=== PATIENT | female | born 1995 ===

== ENCOUNTER 2022-05-20 22:51 | Emergency (ER) | payer SELFPAY ==
[2022-05-21 08:32] LABS: Hematocrit 30.5 % (30.3-42.9); Mean Corpuscular HGB Conc 33 % (30-34); Mean Corpuscular Volume 73 fl (79-97); Platelet Count 241 K/mm3 (140-440); Red Blood Count 4.18 M/mm3 (3.65-5.03); Red Cell Distribution Width 18.3 % (13.2-15.2)
[2022-05-21 08:54] LABS: Blood Urea Nitrogen 4 mg/dL (7-17); Calcium 9.1 mg/dL (8.4-10.2); Hemolysis Index 4
[2022-05-21 09:01] LABS: BUN/Creatinine Ratio 10
--- NOTE | 2022-05-21 10:38 | Emergency Department Report ---
ED Abdominal Pain HPI - General Chief Complaint: Abdominal Pain Stated Complaint: AB PAIN PUI?: No Time Seen by Provider: 05/21/22 07:56 Source: patient Mode of arrival: Ambulatory Limitations: No Limitations, Language Barrier - History of Present Illness Initial Comments: 26 yo comes to ER with 2 d hx dysuria and intermittent flank pain. no fever or chills. no n/v/d. LMP last week. no vag bleed. no vag d/c. MD Complaint: abdominal pain -: Gradual, days(s) Severity scale (0 -10): 0 Quality: burning Consistency: intermittent Improves With: nothing Worsens With: other (urination) Associated Symptoms: denies other symptoms, dysuria - Related Data LMP (females 10-50): other (last Tuesday) Allergies Allergy/AdvReac Type Severity Reaction Status Date / Time No Known Allergies Allergy Verified 05/21/22 12:54 ED Review of Systems ROS: Stated complaint: AB PAIN Other details as noted in HPI Comment: All other systems reviewed and negative ED Past Medical Hx - Past Medical History Previous Medical History?: No - Surgical History Past Surgical History?: No - Family History Family history: no significant - Social History Smoking Status: Never Smoker Substance Use Type: None ED Physical Exam - General Limitations: No Limitations, Language Barrier General appearance: alert, in no apparent distress - Head Head exam: Present: atraumatic, normocephalic - Eye Eye exam: Present: normal appearance - ENT ENT exam: Present: mucous membranes moist - Neck Neck exam: Present: normal inspection - Respiratory Respiratory exam: Present: normal lung sounds bilaterally. Absent: respiratory distress - Cardiovascular Cardiovascular Exam: Present: regular rate, normal rhythm. Absent: systolic murmur, diastolic murmur, rubs, gallop - GI/Abdominal GI/Abdominal exam: Present: soft, normal bowel sounds - Extremities Exam Extremities exam: Present: normal inspection - Back Exam Back exam: Present: normal inspection - Neurological Exam Neurological exam: Present: alert, oriented X3 - Psychiatric Psychiatric exam: Present: normal affect, normal mood - Skin Skin exam: Present: warm, dry, intact, normal color. Absent: rash ED Course Vital Signs 05/20/22 05/21/22 23:09 20:07 Temperature 98.7 F 97.9 F Pulse Rate 73 72 Respiratory 18 14 Rate Blood Pressure 111/60 Blood Pressure 115/66 [Left] O2 Sat by Pulse 99 100 Oximetry ED Medical Decision Making - Lab Data Result diagrams: 05/21/22 08:05 05/21/22 08:05 - Medical Decision Making Vital Signs 05/20/22 05/21/22 23:09 20:07 Temperature 98.7 F 97.9 F Pulse Rate 73 72 Respiratory 18 14 Rate Blood Pressure 111/60 Blood Pressure 115/66 [Left] O2 Sat by Pulse 99 100 Oximetry Lab Results 05/21/22 05/21/22 05/21/22 Range/Units 08:05 08:05 10:38 WBC 3.9 L (4.5-11.0) K/mm3 RBC 4.18 (3.65-5.03) M/mm3 Hgb 10.0 L (10.1-14.3) gm/dl Hct 30.5 (30.3-42.9) % MCV 73 L (79-97) fl MCH 24 L (28-32) pg MCHC 33 (30-34) % RDW 18.3 H (13.2-15.2) % Plt Count 241 (140-440) K/mm3 Sodium 139 (137-145) mmol/L Potassium 3.8 (3.6-5.0) mmol/L Chloride 101.9 (98-107) mmol/L Carbon Dioxide 29 (22-30) mmol/L Anion Gap 12 mmol/L BUN 4 L (7-17) mg/dL Creatinine 0.4 L (0.6-1.2) mg/dL Estimated GFR > 60 ml/min BUN/Creatinine Ratio 10 % Glucose 105 H (65-100) mg/dL Calcium 9.1 (8.4-10.2) mg/dL Urine Color Colorless (Yellow) Urine Turbidity Clear (Clear) Urine pH 7.5 H (5.0-7.0) Ur Specific [place] 1.030 (1.003-1.030) Urine Protein <15 mg/dl (Negative) mg/dL Urine Glucose (UA) Negative (Negative) mg/dL Urine Ketones Negative (Negative) mg/dL Urine Blood Small A (Negative) Urine Nitrite Negative (Negative) Ur Reducing Substances Not Reportable Urine Bilirubin Negative (Negative) Urine Ictotest Not Reportable Urine Urobilinogen < 2.0 (<2.0) mg/dL Ur Leukocyte Esterase Moderate (Negative) Urine WBC (Auto) 30.0 H (0.0-6.0) /HPF Urine RBC (Auto) 5.0 (0.0-6.0) /HPF U Epithel Cells (Auto) 4.0 (0-13.0) /HPF Urine Mucus Few /HPF Urine HCG, Qual Negative (Negative) labs noted preg neg ua noted abd exam unremarkable no cva tenderness no fever no n/v/d ns/rocpehin IV given in ER pt reports feeling better taking po ambulatory nad dc home with dc plan of care including diet meds activity and follow up. She verbalizes understanding of plan of care - Differential Diagnosis ro preg/uti Critical care attestation.: If time is entered above; I have spent that time in minutes in the direct care of this critically ill patient, excluding procedure time. ED Disposition Clinical Impression: UTI (urinary tract infection) Qualifiers: Urinary tract infection type: site unspecified Hematuria presence: without hematuria Qualified Code(s): N39.0 - Urinary tract infection, site not specified Disposition: 01 HOME / SELF CARE / HOMELESS Is pt being admited?: No Does the pt Need Aspirin: No Condition: Stable Instructions: Abdominal Pain (ED) Referrals: PRIMARY CARE, [Primary Care Provider] - 3-5 Days Forms: Work/School Release Form(ED) Time of Disposition: 14:18
[2022-05-21 11:30] LABS: HCG Qualitative,Urine Negative (Negative)
[2022-05-21 11:41] LABS: Mucus,Urine FEW /HPF
[2022-05-21 12:16] LABS: Bilirubin,Urine Negative (Negative); Color,Urine Colorless (Yellow)
[2022-05-21 12:17] LABS: Blood,Urine Small (Negative); PH,Urine 7.5 (5.0-7.0); Protein,Urine <15 mg/dL mg/dL (Negative); Urobilinogen,Urine < 2.0 mg/dL (<2.0)
[2022-05-21] MEDS ORDERED: LIDOCAINE-MPF (1%) 10 MG/1 ML VIAL 5 ML INFILTRATI ONE (12:34)
[2022-05-21] MEDS ORDERED: SODIUM CHLORIDE 0.9% 1000 ML 1,000 ML IV ONE (12:34)
[2022-05-21 20:07] VITALS: BP 115/66
== END 2022-05-21 20:08 | disposition home or self-care (01) ==
LOC: ED 22:51
DX: R10.9 Unspecified abdominal pain (principal)
CPT/HCPCS: 36415; 80048; 81001; 81025; 85027; 87086; 96360; 96372; 99283; J0696; J3490; J7030; 96361

== ENCOUNTER 2022-06-25 20:58 | Emergency (ER) | payer SELFPAY ==
[2022-06-25 22:09] VITALS: BP 111/67
== END 2022-06-26 08:16 | disposition left against medical advice (07) ==
LOC: ED 20:58
DX: J45.909 Unspecified asthma, uncomplicated (principal); Z53.21 Procedure and treatment not carried out due to patient leaving prior to being seen by health care provider